=== PATIENT | female | born 1945 | race Caucasian/White ===

== ENCOUNTER → 2016-08-25 | Outpatient (CLI) | payer MEDICARE, OTHER | END | disposition home or self-care (01) | LOC: GMAM 10:43 | PROVIDERS: ATTEND Family Medicine | DX: M81.0 Age-related osteoporosis without current pathological fracture (principal) ==

== ENCOUNTER → 2017-03-30 | Outpatient (CLI) | payer MEDICARE, OTHER | END | disposition home or self-care (01) | LOC: GMAM 10:22 | PROVIDERS: ATTEND Family Medicine | DX: D51.3 Other dietary vitamin B12 deficiency anemia (principal) ==

== ENCOUNTER → 2017-04-05 | Outpatient (CLI) | payer MEDICARE, OTHER | LOC: GMAM 14:50 | PROVIDERS: ATTEND Family Medicine | DX: E89.0 Postprocedural hypothyroidism (principal); E55.9 Vitamin D deficiency, unspecified ==

== ENCOUNTER → 2017-06-06 | Outpatient (CLI) | payer MEDICARE, OTHER ==
--- NOTE | 2017-06-07 11:04 | MAM ---
EXAM DESCRIPTION: 3D Screening BILATERAL : Digital Mammography. CLINICAL HISTORY: 72 years Female SCREENING . No complaints. Mother with ovarian cancer. Sister with breast cancer. Postmenopausal. No HRT. COMPARISON: 2-D digital screening bilateral studies on 05/30/2016 and 05/27/2015. Report from prior examination also reviewed. TECHNIQUE: Bilateral CC and MLO projection full-field images, 3-D tomosynthesis digital mammographic technique. Also bilateral synthesized CC/ MLO full-field images. CAD not utilized. FINDINGS: The breast parenchymal density pattern is: Scattered areas of fibroglandular density. No skin thickening or nipple retraction bilateral solitary microcalcifications. Bilateral axillary lymph nodes. Bilateral intramammary lymph nodes. No focal, stellate mass or density, focal asymmetry , and no suspicious microcalcifications bilaterally. Stable mammograms compared to prior study, taking into account differences in mammographic technique IMPRESSION: BI-RADS CATEGORY: 2 - BENIGN FINDINGS. FOLLOW UP: Routine digital bilateral screening, one year interval from May 2017. Written communication explaining the IMPRESSION and follow-up, will be mailed to the patient and referring health care provider. According to the [employer], yearly mammograms are recommended starting at age 40 and continuing as long as a woman is in good health. Any breast change noted on a breast self-exam should be reported promptly to the patient's healthcare provider. Breast MRI is recommended for women with an approximately 20-25% or greater lifetime risk of breast cancer, including women with a strong family history of breast or ovarian cancer and women who have been treated for Hodgkin's disease. A negative mammographic report should not delay tissue diagnosis in patients with significant clinical history or physical findings. Extremely dense breast tissue limits the sensitivity of digital mammography. Electronically signed by: Alirio Dykes MD 06/07/2017 11:03 AM [facility]
== END | disposition home or self-care (01) ==
LOC: MAMMO 12:37
PROVIDERS: ATTEND Family Medicine
DX: Z12.31 Encounter for screening mammogram for malignant neoplasm of breast (principal)
CPT/HCPCS: 77063; G0202

== ENCOUNTER → 2017-07-06 | Outpatient (CLI) | payer MEDICARE, OTHER | END | disposition home or self-care (01) | LOC: GMAM 14:40 | PROVIDERS: ATTEND Family Medicine | DX: E55.9 Vitamin D deficiency, unspecified (principal); D51.3 Other dietary vitamin B12 deficiency anemia ==

== ENCOUNTER → 2017-07-12 | Outpatient (CLI) | payer MEDICARE, OTHER | END | disposition home or self-care (01) | LOC: GMAM 17:19 | PROVIDERS: ATTEND Family Medicine | DX: D51.3 Other dietary vitamin B12 deficiency anemia (principal); D64.9 Anemia, unspecified; E55.9 Vitamin D deficiency, unspecified; E53.9 Vitamin B deficiency, unspecified ==

== ENCOUNTER → 2017-10-05 | Outpatient (CLI) | payer MEDICARE, OTHER | LOC: GMAM 14:52 | PROVIDERS: ATTEND Family Medicine | DX: E89.0 Postprocedural hypothyroidism (principal) ==

== ENCOUNTER → 2017-10-19 | Outpatient (CLI) | payer MEDICARE, OTHER | LOC: GMAM 10:39 | PROVIDERS: ATTEND Family Medicine | DX: R80.8 Other proteinuria (principal) ==

== ENCOUNTER → 2018-06-12 | Outpatient (CLI) | payer MEDICARE, OTHER ==
--- NOTE | 2018-06-12 18:32 | MAM ---
EXAM DESCRIPTION: 3D Screening BILATERAL : Digital Mammography. CLINICAL HISTORY: 73 years Female SCREENING . No complaints or personal history of breast cancer. Sister with breast cancer. Childbirth . Postmenopausal 20 years. No HRT. Lifetime risk of developing breast cancer (Tyrer-Cuzick model)(%): 11.0. COMPARISON: Bilateral screening digital breast tomosynthesis 02/03/2017.. No prior reports available. TECHNIQUE: Bilateral CC and MLO projection full-field images, digital tomosynthesis mammographic technique. Bilateral digital 2-D full-field MLO images. CAD not available for tomosynthesis or 2-D images. FINDINGS: The breast parenchymal density pattern is: Scattered areas of fibroglandular density. No skin thickening or nipple retraction. Bilateral vascular calcifications. Bilateral solitary microcalcifications. Left axillary lymph nodes. Bilateral circumscribed nodular densities consistent with intramammary lymph nodes. No new focal, stellate mass or density, focal asymmetry , and no suspicious microcalcifications bilaterally. Stable mammograms compared to prior study. IMPRESSION: Benign exam. BIRAD CATEGORY: 2 BENIGN FINDINGS. RECOMMENDATIONS: FOLLOW UP: Routine digital bilateral mammographic screening, one year interval from June 2018. Written communication explaining the IMPRESSION and follow-up, will be mailed to the patient and referring health care provider. According to the [employer], yearly mammograms are recommended starting at age 40 and continuing as long as a woman is in good health. Any breast change noted on a breast self-exam should be reported promptly to the patient's healthcare provider. Breast MRI is recommended for women with an approximately 20-25% or greater lifetime risk of breast cancer, including women with a strong family history of breast or ovarian cancer and women who have been treated for Hodgkin's disease. A negative mammographic report should not delay tissue diagnosis in patients with significant clinical history or physical findings. Extremely dense breast tissue limits the sensitivity of digital mammography. Electronically signed by: Alirio Dykes MD 06/12/2018 6:30 PM [employer]
== END ==
LOC: MAMMO 10:30
PROVIDERS: ATTEND Family Medicine
DX: Z12.31 Encounter for screening mammogram for malignant neoplasm of breast (principal)

== ENCOUNTER → 2018-08-20 | Outpatient (CLI) | payer MEDICARE, OTHER | LOC: GMAM 15:05 | PROVIDERS: ATTEND Family Medicine | DX: E53.8 Deficiency of other specified B group vitamins (principal); E89.0 Postprocedural hypothyroidism; E55.9 Vitamin D deficiency, unspecified ==

== ENCOUNTER → 2018-08-28 | Outpatient (CLI) | payer MEDICARE, OTHER ==
--- NOTE | 2018-08-28 14:31 | CT ---
EXAM DESCRIPTION: Chest w/Contrast CLINICAL HISTORY: 73 years, Female, ABNORMAL LUNG FIELD COMPARISON: None TECHNIQUE: Thin-section axial CT images are obtained during rapid bolus administration of nonionic IV contrast media. Reconstructed MPR images are created and reviewed as well. This exam was performed according to our departmental dose-optimization program, which includes automated exposure control, adjustment of the mA and/or kV according to patient size and/or use of iterative reconstruction technique. FINDINGS: Enhanced examination of the chest is much improved from remote CT examination 2016. The lungs are better aerated and expanded. There is linear scarring or thin platelike atelectasis in the posterior left lung base is very slight thickening along the left major fissure into the region of the left lingula. There is minor scarring anteriorly on the right along the course of the minor fissure with some volume loss in the right middle lobe. All of this is improved from previous examination. A distinct pulmonary nodule or mass or pattern to suggest either primary pulmonary neoplasm or metastatic disease is not apparent. Soft tissue images demonstrate fatty replacement of the liver with relative sparing of the medial segment left lobe of the liver. The spleen is heterogeneous. A small heterogeneous 2 cm soft tissue density nodule left adrenal gland is unchanged from 2016 examination and no further evaluation is recommended. The hilar and mediastinal structures are unremarkable. The chest wall and axillary regions breast tissues appear symmetric. IMPRESSION: 1. Linear scarring in the mid and posterior left lung base and in the anterior right lower lung field along the course of the minor fissure improved from previous 2016 examination with no dense consolidation or pulmonary mass or metastatic disease noted. 2. Fatty replaced liver and stable 2 cm left adrenal nodule consistent with a benign adenoma unchanged from 2016. 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
== END ==
LOC: CT 09:53
PROVIDERS: ATTEND Family Medicine
DX: R91.8 Other nonspecific abnormal finding of lung field (principal); K76.0 Fatty (change of) liver, not elsewhere classified

== ENCOUNTER 2018-12-08 07:35 | Emergency (ER) | payer MEDICARE, OTHER ==
[2018-12-08 07:56] VITALS: O2SAT 97
--- NOTE | 2018-12-08 08:00 | ED.PDOC ---
History of Present Illness - General Chief Complaint: Trauma Stated Complaint: Pt fell hurting her R wrist, knee and hip Time Seen by Provider: 12/08/18 07:56 Source: patient Exam Limitations: no limitations - History of Present Illness Initial Comments: SHE FELL LAST NIGHT AND INJURED HER RIGHT WRIST. NOW THE WRIST IS SWOLLEN AND PAINFUL. DENIES ANY OTHER INJURIES. SHE TOOK A NORCO 5 MG THIS AM. Timing/Duration: other - 12 HRS AGO. Severity: moderate Improving Factors: medication Worsening Factors: movement Associated Symptoms: denies symptoms Allergies/Adverse Reactions: Allergies NO KNOWN ALLERGY Allergy (Verified 12/08/18 07:56) Home Medications: Ambulatory Orders Levothyroxine Sodium [Synthroid] 125 mcg PO DAILY 06/15/15 Lovaza 1 gm 2 gm PO DAILY 06/15/15 Pantoprazole Tablet [Protonix] 40 mg PO QAM #30 tab 06/15/15 Sitagliptin-Metformin HCl [Janumet] 1 tab PO DAILY 06/15/15 amLODIPine BESYLATE [Norvasc] 5 mg PO DAILY 06/15/15 Acetaminophen W/ Codeine [Tylenol W/ CODEINE #3] 1 ea PO Q6HRS #20 12/08/18 Choline Fenofibrate [Trilipix] 135 mg PO DAILY 12/08/18 Clonidine HCl 0.1 mg PO TID PRN 12/08/18 Ezetimibe [Zetia] 10 mg PO DAILY 12/08/18 Review of Systems - Review of Systems Constitutional: States: no symptoms reported EENTM: States: no symptoms reported Respiratory: States: no symptoms reported Cardiology: States: no symptoms reported Gastrointestinal/Abdominal: States: no symptoms reported Genitourinary: States: no symptoms reported Musculoskeletal: States: joint pain, joint swelling Skin: States: no symptoms reported Neurological: States: no symptoms reported Endocrine: States: no symptoms reported Hematologic/Lymphatic: States: no symptoms reported Past Medical History (General) - Patient Medical History Hx of COPD: No Hx Cardiac Disorders: No Hx Hypertension: Yes Hx Thyroid Disease: Yes - Graves Hx Diabetes: Yes Hx Gastroesophageal Reflux: Yes Hx Cancer: Yes - Thyroid Surgical History: cancer surgery, cholecystectomy, other - Vaccination History Hx Tetanus, Diphtheria Vaccination: No Hx Influenza Vaccination: Yes Hx Pneumococcal Vaccination: Yes - Social History Hx Tobacco Use: Yes Hx Alcohol Use: No Hx Substance Use: No Hx Substance Use Treatment: No Hx Depression: No - Female History Patient is a Female of Child Bearing Age (10 -59 yrs old): No Patient : No Family Medical History - Family History Mother Family History: Unknown Physical Exam - Physical Exam General Appearance: Alert, Well Developed, Well Groomed, Well Hydrated Eye Exam: bilateral normal Ears, Nose, Throat: hearing grossly normal Neck: non-tender, full range of motion Respiratory: chest non-tender, lungs clear Cardiovascular/Chest: normal peripheral pulses, regular rate, rhythm, no edema, no gallop, no JVD, no murmur Gastrointestinal/Abdominal: normal bowel sounds, non tender Rectal Exam: deferred Back Exam: normal inspection Extremity: other - THE RIGHT WRIST IS SWOLLEN AND TENDER, NO BRUISING IS NOTED Neurologic: no motor/sensory deficits, alert Progress - Results/Orders Results/Orders: IMAGING: IMPACTED FRACTURE OF THE DISTAL RADIUS, CLOSED NOT ANGULATED. Departure - Departure Clinical Impression: Radius distal fracture Qualifiers: Encounter type: initial encounter Fracture type: closed Fracture morphology: other intra-articular Laterality: right Qualified Code(s): S52.571A - Other intraarticular fracture of lower end of right radius, initial encounter for closed fracture Time of Disposition: 08:24 Disposition: Discharge to Home or Self Care Condition: Good Departure Forms: ED Discharge - Pt. Copy, Patient Portal Self Enrollment Instructions: Radius Fracture (DC) Activity: increase activity as tolerated Referrals: Gio Yang MD [Primary Care Provider] - 1-2 Weeks Jesse Collado MD [Active Staff] - 1-5 Days Prescriptions: Acetaminophen W/ Codeine [Tylenol W/ CODEINE #3] 1 ea PO Q6HRS #20 Home Medications: Ambulatory Orders Levothyroxine Sodium [Synthroid] 125 mcg PO DAILY 06/15/15 Lovaza 1 gm 2 gm PO DAILY 06/15/15 Pantoprazole Tablet [Protonix] 40 mg PO QAM #30 tab 06/15/15 Sitagliptin-Metformin HCl [Janumet] 1 tab PO DAILY 06/15/15 amLODIPine BESYLATE [Norvasc] 5 mg PO DAILY 06/15/15 Acetaminophen W/ Codeine [Tylenol W/ CODEINE #3] 1 ea PO Q6HRS #20 12/08/18 Choline Fenofibrate [Trilipix] 135 mg PO DAILY 12/08/18 Clonidine HCl 0.1 mg PO TID PRN 12/08/18 Ezetimibe [Zetia] 10 mg PO DAILY 12/08/18 Additional Instructions: ICE AND ELEVATION
--- NOTE | 2018-12-08 08:32 | RAD ---
EXAM DESCRIPTION: Wrist,Right 3 Views CLINICAL HISTORY: 73 years Female painful wrist COMPARISON: None TECHNIQUE: AP, lateral and oblique views of the right wrist are obtained. FINDINGS: OSSEOUS: There is an acute, comminuted and mildly impacted fracture of the distal radius with possible intra-articular extension. The joint spaces are preserved. No evidence of subluxation or dislocation. There is marginal osteophytosis in the visualized DIP joints, PIP joint, interphalangeal joint of the thumb and first CMC joint indicating multifocal primary osteoarthritis. There is no evidence of marginal erosive changes to suggest an inflammatory arthritis. SOFT TISSUE: There is soft tissue swelling dorsal to the distal forearm. No evidence of significant soft tissue calcifications. No radiopaque foreign bodies. IMPRESSION: Acute distal radial fracture. Remainder of findings as described above. Electronically signed by: Angelina Perez MD 12/08/2018 8:29 AM CDT
[2018-12-08 08:46] VITALS: BP 169/88; TEMP 98.2
== END 2018-12-08 08:40 | disposition home or self-care (01) ==
LOC: ER 07:35
DX: S52.571A Other intraarticular fracture of lower end of right radius, initial encounter for closed fracture (principal); E05.00 Thyrotoxicosis with diffuse goiter without thyrotoxic crisis or storm; I10 Essential (primary) hypertension; E11.9 Type 2 diabetes mellitus without complications; K21.9 Gastro-esophageal reflux disease without esophagitis; Z87.891 Personal history of nicotine dependence; Z85.850 Personal history of malignant neoplasm of thyroid; Z79.899 Other long term (current) drug therapy; W18.30XA Fall on same level, unspecified, initial encounter; Y93.K1 Activity, walking an animal; Y92.9 Unspecified place or not applicable

== ENCOUNTER → 2018-12-20 | Outpatient (CLI) | payer MEDICARE, OTHER ==
--- NOTE | 2018-12-20 17:54 | RAD ---
EXAM DESCRIPTION: Wrist,Right 3 Views CLINICAL HISTORY: 73 years, Female, S52.501D COMPARISON: Previous x-rays right wrist December 13, 2018 FINDINGS: Right wrist 3 x-ray views is positive for fracture of the distal radius which appears impacted. A transverse fracture line is seen as well as a more longitudinal line extending into or towards the radiocarpal joint. Degenerative changes at the lateral carpus. Degenerative spurring at the heads of the metacarpals and at the interphalangeal joint of the thumb.. Lateral view shows moderate dorsal angulation of the impacted fracture with definite extension into the radiocarpal joint. Compared to previous study, no change in alignment. No visualized callus formation. IMPRESSION: Comminuted impacted fracture of the distal right radius extending into the radiocarpal joint. Electronically signed by: Lei Rod MD 12/20/2018 5:52 PM CDT
== END ==
LOC: RAD 08:50
PROVIDERS: ATTEND Orthopaedic Surgery
DX: S52.501D Unspecified fracture of the lower end of right radius, subsequent encounter for closed fracture with routine healing (principal)

== ENCOUNTER → 2018-12-31 | Outpatient (CLI) | payer MEDICARE, OTHER ==
--- NOTE | 2018-12-31 09:26 | RAD ---
EXAM DESCRIPTION: Wrist,Right 3 Views CLINICAL HISTORY: 73 years Female, S52.501D COMPARISON: December 20, 2018 FINDINGS: Three views of the right wrist again show a nondisplaced, impacted distal right radial metaphyseal fracture with intra-articular extension. Additional tiny fracture involving the tip of the ulnar styloid, both not significantly changed from December 20, 2018. The ulnar styloid fracture is nonunited, the distal right radial fracture is non or only partially united. No new abnormality. IMPRESSION: Distal right radial and ulnar styloid fractures as detailed above, non or only partially united. No significant change from December 20, 2018. Electronically signed by: Lamin Singer MD 12/31/2018 9:24 AM CDT
== END ==
LOC: RAD 08:52
PROVIDERS: ATTEND Orthopaedic Surgery
DX: S52.501D Unspecified fracture of the lower end of right radius, subsequent encounter for closed fracture with routine healing (principal); S52.614D Nondisplaced fracture of right ulna styloid process, subsequent encounter for closed fracture with routine healing

== ENCOUNTER → 2019-01-16 | Outpatient (CLI) | payer MEDICARE, OTHER | LOC: GMAM 11:08 | PROVIDERS: ATTEND Family Medicine | DX: E53.8 Deficiency of other specified B group vitamins (principal); R00.2 Palpitations ==

== ENCOUNTER → 2019-01-17 | Outpatient (CLI) | payer MEDICARE, OTHER ==
--- NOTE | 2019-01-17 10:53 | RAD ---
EXAM DESCRIPTION: Wrist,Right 3 Views CLINICAL HISTORY: 73 years Female, S52.501D COMPARISON: Right wrist radiographs 12/31/2018. TECHNIQUE: 3 views of the right wrist. IMPRESSION: Increase periosteal reaction and sclerosis about the distal radial fracture consistent with progressive healing. No new acute displaced fracture. Unchanged tiny displaced fracture fragment at the ulnar styloid tip and is nonunited with no evidence of healing at this time. Mild arthrosis about the first carpal metacarpal joint. No radiographically apparent soft tissue abnormality. Electronically signed by: Jhony Pimentel MD 01/17/2019 10:50 AM CDT
== END ==
LOC: RAD 09:35
PROVIDERS: ATTEND Orthopaedic Surgery
DX: S52.501D Unspecified fracture of the lower end of right radius, subsequent encounter for closed fracture with routine healing (principal); S52.611D Displaced fracture of right ulna styloid process, subsequent encounter for closed fracture with routine healing; M19.031 Primary osteoarthritis, right wrist

== ENCOUNTER → 2019-02-01 | Outpatient (CLI) | payer MEDICARE, OTHER | LOC: LAB.O 08:17 | PROVIDERS: ATTEND Internal Medicine Gastroenterology | DX: R19.7 Diarrhea, unspecified (principal) ==

== ENCOUNTER → 2019-02-07 | Outpatient (CLI) | payer MEDICARE, OTHER ==
--- NOTE | 2019-02-08 07:22 | RAD ---
PROVIDED CLINICAL HISTORY/REASON FOR EXAM: S52.501D Findings: Number of images: Three Location: Right wrist Stable chronic ulnar styloid avulsion fracture. Increased healing of the distal right radius fracture with stable alignment. Carpal alignment is maintained. Stable first CMC osteoarthritis. No new fracture identified. No focal soft tissue swelling. IMPRESSION: Healing distal right radius fracture with stable alignment. Electronically signed by: Albert Liang MD 02/08/2019 7:20 AM CDT
== END ==
LOC: RAD 09:30
PROVIDERS: ATTEND Orthopaedic Surgery
DX: S52.501D Unspecified fracture of the lower end of right radius, subsequent encounter for closed fracture with routine healing (principal)

== ENCOUNTER → 2019-05-06 | Outpatient (CLI) | payer MEDICARE, OTHER ==
--- NOTE | 2019-05-06 12:55 | RAD ---
EXAM DESCRIPTION: Right wrist, 3 radiographs CLINICAL HISTORY: PAIN IN RIGHT WRIST FINDINGS/ IMPRESSION: Comparison 02/07/2019 Progressive healing/osseous fusion across the distal radial metaphysis fracture. Impaction deformity of the posterior metaphysis with dorsal tilt of the distal radial articular surface. Small ossicle adjacent to the tip of the ulnar styloid No advanced arthrosis of the wrist. Mild osteoarthritis of the STT joint. Moderate osteoarthritis of the carpometacarpal joint of the thumb. Normal intercarpal distances Electronically signed by: Gio Delgado MD 05/06/2019 12:54 PM CDT
== END ==
LOC: RAD 09:38
PROVIDERS: ATTEND Orthopaedic Surgery
DX: S52.501D Unspecified fracture of the lower end of right radius, subsequent encounter for closed fracture with routine healing (principal)

== ENCOUNTER → 2019-06-25 | Outpatient (CLI) | payer MEDICARE, OTHER ==
--- NOTE | 2019-06-28 14:34 | MAM ---
EXAM DESCRIPTION: 3D Screening BILATERAL : Digital Mammography. CLINICAL HISTORY: 74 years Female SCREENING . No complaints. No personal history of breast cancer. Female sibling with breast cancer in the sixth decade. Menarche age 14. Childbirth age 18. Menopause age 52 years. No HRT. Lifetime risk of developing breast cancer (Tyrer-Cuzick model)(%): 8.4. COMPARISON: Bilateral screening digital breast tomosynthesis 12 June 2018 and 06 June 2017. TECHNIQUE: Bilateral CC and MLO projection full-field images, digital tomosynthesis mammographic technique. Bilateral digital 2-D full-field MLO images. CAD not available for tomosynthesis or 2-D images. FINDINGS: The breast parenchymal density pattern is: Almost entirely fatty. No skin thickening or nipple retraction. Bilateral mole markers. Bilateral vascular calcifications. Bilateral axillary lymph nodes. Bilateral solitary microcalcifications. Stable mass density most likely lymph node in the central left breast. No new focal, stellate mass or density, focal asymmetry , and no suspicious microcalcifications bilaterally. Stable mammograms compared to prior study. IMPRESSION: Benign exam. BIRAD CATEGORY: 2 BENIGN FINDINGS. RECOMMENDATIONS: FOLLOW UP: Routine digital bilateral mammographic screening, one year interval from June 2019. Written communication explaining the IMPRESSION and follow-up, will be mailed to the patient and referring health care provider. According to the [employer], yearly mammograms are recommended starting at age 40 and continuing as long as a woman is in good health. Any breast change noted on a breast self-exam should be reported promptly to the patient's healthcare provider. Breast MRI is recommended for women with an approximately 20-25% or greater lifetime risk of breast cancer, including women with a strong family history of breast or ovarian cancer and women who have been treated for Hodgkin's disease. A negative mammographic report should not delay tissue diagnosis in patients with significant clinical history or physical findings. Extremely dense breast tissue limits the sensitivity of digital mammography. Electronically signed by: Alirio Dykes MD 06/28/2019 2:33 PM INTERCEPTOR OPERATOR
== END ==
LOC: MAMMO 10:30
PROVIDERS: ATTEND Family Medicine
DX: Z12.31 Encounter for screening mammogram for malignant neoplasm of breast (principal)

== ENCOUNTER → 2019-08-28 | Outpatient (CLI) | payer MEDICARE, OTHER ==
--- NOTE | 2019-08-29 06:12 | CT ---
EXAM DESCRIPTION: Abdomen/Pelvis w/Contrast CLINICAL HISTORY: 74 years Female, GENERALIZED ABDOMINAL PAIN TECHNIQUE: This exam was performed according to our departmental dose-optimization program, which includes automated exposure control, adjustment of the mA and/or kV according to patient size and/or use of iterative reconstruction technique. COMPARISON: None at time of initial interpretation. FINDINGS: Visualized lung bases are grossly unremarkable. The liver is unremarkable. No suspicious hepatic lesion. No biliary dilatation. Cystectomy. The portal vein is patent. The liver measures 19 cm. Stable size of the left adrenal nodule dating back to September 17, 2012, at which time imaging characteristics more compatible with benign adenoma. No follow-up indicated. The pancreas and right adrenal gland are unremarkable. Spleen is normal. Symmetric renal parenchymal enhancement. No hydronephrosis. No urolithiasis. Tiny bilateral hypoattenuating renal lesions arise. Unremarkable bladder. No urothelial lesion. No suspicious adnexal mass. Scattered colonic diverticula without focal inflammatory change. No evidence of bowel obstruction. No findings to suggest appendicitis. Normal appendix. No adenopathy. No focal fluid collection. No free air. Normal caliber abdominal aorta. Diffuse atherosclerotic disease. No acute or suspicious osseous abnormality. Scattered degenerative changes present. IMPRESSION: No evidence of acute process in the abdomen or pelvis. Electronically signed by: Albert Liang MD 08/29/2019 6:10 AM [employer]
== END ==
LOC: CT 09:00
PROVIDERS: ATTEND Internal Medicine Gastroenterology
DX: R10.84 Generalized abdominal pain (principal)

== ENCOUNTER → 2020-01-06 | Outpatient (CLI) | payer MEDICARE, OTHER | LOC: LAB.O 08:29 | PROVIDERS: ATTEND Internal Medicine Endocrinology, Diabetes & Metabolism | DX: E11.319 Type 2 diabetes mellitus with unspecified diabetic retinopathy without macular edema (principal); E11.40 Type 2 diabetes mellitus with diabetic neuropathy, unspecified; E78.2 Mixed hyperlipidemia; E03.9 Hypothyroidism, unspecified ==

== ENCOUNTER → 2020-06-10 | Outpatient (CLI) | payer MEDICARE, OTHER | LOC: GMAM 14:30 | PROVIDERS: ATTEND Family Medicine | DX: E53.8 Deficiency of other specified B group vitamins (principal); I10 Essential (primary) hypertension; E11.9 Type 2 diabetes mellitus without complications; E89.0 Postprocedural hypothyroidism; D64.9 Anemia, unspecified; E55.9 Vitamin D deficiency, unspecified ==

== ENCOUNTER → 2020-07-08 | Outpatient (CLI) | payer MEDICARE, OTHER ==
--- NOTE | 2020-07-09 12:37 | MAM ---
EXAM DESCRIPTION: 3D Screening BILATERAL : Digital Mammography. CLINICAL HISTORY: 75 years Female SCREENING . No complaints. Mother with ovarian cancer in the seventh decade. Female sibling with breast cancer in the sixth decade. Menarche age 14. Childbirth age 18. Menopause age 52.. No HRT. Lifetime risk of developing breast cancer (Tyrer-Cuzick model)(%): 7.9. COMPARISON: Bilateral screening digital breast tomosynthesis June 2018 and May 2017 TECHNIQUE: Bilateral CC and MLO projection full-field images, digital tomosynthesis mammographic technique. Bilateral digital 2-D full-field MLO images. and CC images. CAD available for 2-D images. FINDINGS: The breast parenchymal density pattern is: Scattered areas of fibroglandular density. Axillary nodes. Vascular calcifications. Intramammary lymph nodes. Stable. No skin thickening or nipple retraction No new focal, stellate mass or density, focal asymmetry , and no suspicious microcalcifications bilaterally. Stable mammograms compared to prior study. IMPRESSION: Benign exam. BIRAD CATEGORY: 2 BENIGN FINDINGS. RECOMMENDATIONS: FOLLOW UP: Routine digital bilateral mammographic screening, one year interval from June 2020. Written communication explaining the IMPRESSION and follow-up, will be mailed to the patient and referring health care provider. According to the [employer], yearly mammograms are recommended starting at age 40 and continuing as long as a woman is in good health. Any breast change noted on a breast self-exam should be reported promptly to the patient's healthcare provider. Breast MRI is recommended for women with an approximately 20-25% or greater lifetime risk of breast cancer, including women with a strong family history of breast or ovarian cancer and women who have been treated for Hodgkin's disease. A negative mammographic report should not delay tissue diagnosis in patients with significant clinical history or physical findings. Extremely dense breast tissue limits the sensitivity of digital mammography. Electronically signed by: Alirio Dykes MD 07/09/2020 12:36 PM PIT OPERATOR
== END ==
LOC: MAMMO 09:46
PROVIDERS: ATTEND Family Medicine
DX: Z12.31 Encounter for screening mammogram for malignant neoplasm of breast (principal)

== ENCOUNTER → 2020-07-13 | Outpatient (CLI) | payer MEDICARE, OTHER | LOC: GMAM 13:51 | PROVIDERS: ATTEND Family Medicine | DX: R70.0 Elevated erythrocyte sedimentation rate (principal) ==

== ENCOUNTER → 2020-07-14 | Outpatient (CLI) | payer MEDICARE, OTHER | LOC: LAB.O 11:24 | PROVIDERS: ATTEND Family Medicine | DX: R77.0 Abnormality of albumin (principal) ==

== ENCOUNTER → 2020-08-18 | Outpatient (CLI) | payer MEDICARE, OTHER | LOC: GMAM 16:48 | PROVIDERS: ATTEND Family Medicine | DX: R61 Generalized hyperhidrosis (principal) ==

== ENCOUNTER → 2020-09-04 | Outpatient (CLI) | payer MEDICARE, OTHER ==
--- NOTE | 2020-09-05 15:05 | CT ---
EXAM: Abdomen/Pelvis w/Contrast (accession [id number]), Chest w/Contrast (accession [id number]) INDICATION: GENERALIZED HYPERHIDROSIS . COMPARISON: CT abdomen pelvis with without contrast 03/19/[address] abdomen pelvis 08/28/2019 TECHNIQUE: CT of the chest, abdomen, and pelvis was performed following the administration of IV contrast. Multiple axial images and multiplanar reconstructions were generated. This exam was performed according to our departmental dose-optimization program, which includes automated exposure control, adjustment of the mA and/or kV according to patient size and/or use of iterative reconstruction technique. CHEST FINDINGS: Heart: Heart size is within normal limits. No pericardial effusion. Great vessels: The caliber of the main pulmonary artery is within normal limits. The caliber of the aorta is within normal limits. Mild scattered atherosclerosis in the thoracic aorta. Mediastinum: No mediastinal lymphadenopathy. No mediastinal masses. Lungs: Scattered subsegmental atelectasis in the lungs. Solitary 6 mm groundglass pulmonary nodule in the left upper lobe (axial series 8 image 17). No other pulmonary infiltrate. No pleural effusion. No pneumothorax. Esophagus: Unremarkable appearance of the esophagus. Thyroid: Surgical clips are noted in the neck near the expected location of the thyroid gland. Bones: No acute fracture. No destructive osseous lesion. Degenerative changes in the spine. Body wall: Unremarkable appearance of the visualized soft tissues of the body wall. ABDOMEN PELVIS FINDINGS: Liver: Hepatic steatosis. Gallbladder: The gallbladder is surgically absent. Pancreas: Unremarkable appearance of the pancreas. Spleen: Unremarkable appearance of the spleen. Adrenal glands: 2 cm solid left adrenal gland nodule has been grossly stable in size since the examination of 2011, and is almost certainly benign given its long-term stability. Unremarkable appearance of the right adrenal gland. Kidneys, ureters, bladder: Multiple small low-density lesions present in the right kidney, similar to the prior study of 08/28/2019, likely cysts. No striated nephrograms or hydronephrosis. No obstructing renal stones are identified. Unremarkable appearance of the visualized portions of the ureters. Unremarkable appearance of the urinary bladder. No abnormal filling defects are identified within the opacified portions of the collecting systems on the delayed postcontrast images. Stomach and bowel: Unremarkable appearance of the stomach. No dilated loops of small bowel. Unremarkable appearance of the colon. The appendix is identified and appears normal. Uterus and adnexa: Unremarkable appearance of the uterus. No adnexal mass. Peritoneum: No free fluid. No pneumoperitoneum. Lymph nodes: No lymphadenopathy. Vasculature: Moderate atherosclerosis. Bones: No acute fracture. No destructive osseous lesion. Degenerative changes in the spine and hips. Body wall: Unremarkable appearance of the body wall and remainder of the visualized soft tissues. IMPRESSION: 1. Incidental solitary 6 mm groundglass pulmonary nodule in the left upper lobe. Recommend a non-contrast Chest CT at 6-12 months to confirm persistence, then additional non-contrast Chest CTs every 2 years until 5 years. If nodule grows or develops solid component(s), consider resection. (Radiology. 2017 Jan; 284(1):228-243; Chest. 2012; 143(5)(Suppl):r59G-y303A). 2. Hepatic steatosis. 3. 2 cm solid left adrenal gland nodule has been grossly stable since 2011, almost certainly benign given its long-term stability. 4. Small right renal cysts. Electronically signed by: Velma London MD 09/05/2020 3:03 PM [facility]
== END ==
LOC: CT 08:43
PROVIDERS: ATTEND Family Medicine
DX: R06.02 Shortness of breath (principal); R61 Generalized hyperhidrosis; R91.1 Solitary pulmonary nodule; E27.9 Disorder of adrenal gland, unspecified; N28.1 Cyst of kidney, acquired; K76.0 Fatty (change of) liver, not elsewhere classified